=== PATIENT | female | born 1980 | race Caucasian/White ===

== ENCOUNTER 2019-10-19 08:21 | Outpatient (CLI) | payer OTHER, SELFPAY ==
--- NOTE | ~2019-10-19 | MM_ITS ---
EXAMINATION: MM scrn donny implant BI w genevieve HISTORY: Screening mammogram TECHNIQUE: Craniocaudal and mediolateral oblique 3-D tomosynthesis images with implant displacement a nd synthetic 2-D images were generated. Craniocaudal and mediolateral oblique views of the breasts wi thout implant displacement were obtained using full field digital mammography. CAD analysis was submi tted and interpreted. COMPARISON: No prior mammogram is available for comparison at this institution. BREAST PARENCHYMAL COMPOSITION: The breasts are extremely dense, which lowers the sensitivity of mamm ography. FINDINGS: Status post bilateral augmentation mammoplasty. There is no evidence of suspicious mass, ca lcification, or architectural distortion to suggest malignancy in either breast. There has been no ramirez spicious interval change. IMPRESSION: 1. No mammographic evidence of malignancy. 2. Recommend routine screening mammography in one year. BI-RADS Category 1: Negative Reviewed, dictated and finalized at location A.
== END 2019-10-19 08:22 | disposition home or self-care (01) ==
DX: Z12.31 Encounter for screening mammogram for malignant neoplasm of breast (principal)
CPT/HCPCS: 77063; 77067

== ENCOUNTER 2020-03-07 02:14 | Outpatient (CLI) | payer OTHER, SELFPAY ==
[2020-03-07 18:17] LABS: SARS-CoV-2 RNA PCR Negative
== END 2020-03-07 02:15 | disposition home or self-care (01) ==
LOC: ANHCOVIDDT 02:14
PROVIDERS: PCP Physician Assistant; Visit Provider Surgery Plastic and Reconstructive Surgery
DX: Z01.812 Encounter for preprocedural laboratory examination (principal); Z20.828 Contact with and (suspected) exposure to other viral communicable diseases
CPT/HCPCS: 87635; C9803; U0003

== ENCOUNTER 2020-03-09 00:02 | Day surgery (SDC) | payer OTHER, SELFPAY ==
[2020-02-22 15:12] VITALS: BMI 23.1
[2020-03-09 06:45] LABS: Urine Cotinine NEGATIVE
[2020-03-09] MEDS: LACTATED RINGERS 1,000 ML 30 ML IV CONT ×2 (06:48→08:45)
--- NOTE | 2020-03-09 06:55 | WPDANESEPPF ---
Anes - Initial Pre Proc Eval Procedure: Operation Date: 03/09/20 07:30 Proposed Procedures p Bilateral Breast Implant Exchange - Vito Peña MD Date/Time: 03/09/20 06:55 Surgeon: Vito Peña MD Pre Op Diagnosis: History of Breast Augmentation Patient Data Age: 40 Gender: F Height: 5 ft 4 in Weight: 61.24 kg Allergies Allergy/AdvReac Type Severity Reaction Status Date / Time No Known Allergies Allergy Verified 02/23/20 16:33 Home Medications Medication Instructions Recorded Confirmed Type dextroamphetamine-amphetamine 5 mg 5 mg PO DAILY PRN 09/08/19 02/22/20 History tablet sertraline 100 mg tablet 100 mg PO DAILY 09/08/19 02/22/20 History adalimumab [Humira Pen] 40 mg SUBCUT [id number] 02/22/20 02/22/20 History levonorgestrel [Mirena] 1 device INTRAUTERINE ONCE 02/22/20 02/22/20 History multivitamin 1 tablet PO DAILY 02/22/20 02/22/20 History carisoprodol 350 mg tablet 350 mg PO TID PRN #21 tablet 02/23/20 02/23/20 Rx docusate sodium 100 mg capsule 100 mg PO BID #14 cap 02/23/20 02/23/20 Rx hydrocodone 5 mg-acetaminophen 325 1 tablet PO Q6H PRN #15 tablet 02/23/20 02/23/20 Rx mg tablet Laboratory Tests 03/09/20 06:16 Cotinine Negative Patient hx anesthesia problems: none Family hx anesthesia problems: none PMFSH Past Medical History Medical History (Updated 03/09/20 @ 06:56 by Reed Mccloud MD) Excessive sleepiness Psoriasis Surgical History Surgical History History of History of elective breast augmentation Social History Social History Smoking status: Never smoker Spiritual care concerns: No Anes - Eval Final PreProcedure Day of Procedure 03/09/20 06:55 Patient weight: normal Heart: regular rate and rhythm Lungs: clear to auscultation Airway: Mallampati scale class II Neurological: alert and oriented Last oral intake: >/= 8 hours ASA classification: II Emergent: no Anesthetic plan: proceed Anesthesia type and monitoring: general LMA and standard monitoring Informed Consent: The patient's anesthetic plan and its attendant risks and benefits were discussed with the patient/family/POA. Questions were solicited and answers provided to the satisfaction of the patient/family/POA.
[2020-03-09 07:00] VITALS: BP 126/78; PULSE 65; RESP 18; TEMP 36.6; O2SAT 99
--- NOTE | 2020-03-09 07:13 | WPDHPUPDATE1 ---
History and Physical Update Update Date/Time: 03/09/20 07:13 History and Physical has been reviewed, including an updated exam of the patient. There are NO changes in the patient's condition. She understands the risks of persistant breast ptosis after the procedure. She does not want to proceed with mastopexy today. She understands she may proceed with mastopexy at a second stage at her expense if desired. Risks, benefits, and alternatives have been discussed and questions answered. Patient agrees to proceed with procedure.
--- NOTE | 2020-03-09 07:17 | PM.PROC ---
Procedure Note - Detailed Date of procedure: 03/09/20 Pre-op diagnosis: History of Breast Augmentation Post-op diagnosis: same Procedure performed: Bilateral breast implant exchange Description of procedure: Patient was marked in the preoperative area. Risks, benefits, alternatives were discussed extensive detail. I want her to be very realistic about the risks involved as well as expectations. 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 This was identified in great detail today again as has been at previous visits. I want her to be very clear we will not be correcting this. She does not wish to proceed with mastopexy today and she understands that a second-stage she could have mastopexy if she is unhappy. This would be at her expense. We discussed implant sizing. Made sure all of her questions were answered to her satisfaction today and consent obtained. She was taken to the operating room placed supine on the operating room table. Anesthesia provided by anesthesiology and prepped and draped in a standard sterile fashion. Surgical time-out was taken. 1% lidocaine and 0.25% Marcaine with epinephrine was used to provide a field block. Fifteen blade used to excise the previous scar. Dissection was continued down to the implant was identified. The implant was textured. As such I continued dissection just superficial to the capsule and removed the majority of the capsule. The posterior wall was very adherent to the chest wall I was not able to remove this however I did cauterize. I did elevated superficial to the muscle on the right dual plane 3 on the left dual plane 2. At this point I copiously irrigated with 3 L of saline on TUR tubing. Verified a strict hemostasis. Irrigated with triple antibiotic Betadine solution. Throughout the procedure we did have Tegaderm nipple Joseph in place. Wash my gloves and using a Clayton funnel the implant was introduced into the pocket. I verified positioning. This was closed with 2-0 Vicryl followed by 3-0 Monocryl in a running subcuticular 4-0 Monocryl and tissue glue. Dressing was placed. Anesthesia: GLMA Surgeon: Vito Peña MD Estimated blood loss (mL): 10 Drains: No Packing: No Pathology: yes (Bilateral capsules) Complications: No immediate complications Condition: stable Disposition: PACU Findings: Previous implant 270cc textured saline est fill 300. Implants Natrelle Inspira SoftTouch 275cc R: REF M-275 SN [id number] L: REF M-275 SN [id number]
[2020-03-09] MEDS: ceFAZolin 2 GM/D5W 50 ML 2 GM/50 ML BAG IVPB (07:27)
[2020-03-09] MEDS: LIDO 1%/EPINEPHRINE 1:100,000 20 ML VIAL 30 ML INFILTRATE (08:31)
[2020-03-09 08:50] VITALS: BP 141/76; PULSE 93; RESP 20; TEMP 36.1; O2SAT 100
[2020-03-09 09:05] VITALS: BP 135/73; PULSE 83; RESP 12; O2SAT 98
[2020-03-09] MEDS: fentaNYL CITRATE INJ (*CRX) 100 MCG/2 ML VIAL 25 MCG IV PUSH (09:17)
[2020-03-09 09:20] VITALS: BP 126/78; PULSE 81; RESP 14; O2SAT 92
[2020-03-09 09:35] VITALS: BP 127/81; PULSE 76; RESP 14; O2SAT 92
[2020-03-09] MEDS: oxyCODONE HCL (*CRX) 5 MG TAB IR PO (10:00)
[2020-03-09 10:05] VITALS: BP 122/81; PULSE 85; RESP 16; O2SAT 95
== END 2020-03-09 11:05 | disposition home or self-care (01) ==
PROVIDERS: PCP Physician Assistant; Visit Provider Surgery Plastic and Reconstructive Surgery
PROC: (CPT 19342; principal; 2020-03-09 07:30)
DX: N64.81 Ptosis of breast (principal); T85.49XA Other mechanical complication of breast prosthesis and implant, initial encounter; Y83.8 Other surgical procedures as the cause of abnormal reaction of the patient, or of later complication, without mention of misadventure at the time of the procedure; L40.9 Psoriasis, unspecified; Z79.899 Other long term (current) drug therapy
CPT/HCPCS: 19371; 19340; 80307; 88304; A9270; J0131; J0690; J1100; J1580; J2250; J2405; J2704; J3010; J7120

== ENCOUNTER 2021-08-09 07:25 | Outpatient (CLI) | payer OTHER, SELFPAY ==
--- NOTE | ~2021-08-09 | MM_ITS ---
EXAMINATION: MM scrn donny implant BI w genevieve HISTORY: Screening mammogram TECHNIQUE: Craniocaudal and mediolateral oblique 3-D tomosynthesis images with implant displacement a nd synthetic 2-D images were generated. Craniocaudal and mediolateral oblique views of the breasts wi thout implant displacement were obtained using full field digital mammography. CAD analysis was submi tted and interpreted. COMPARISON: 10/19/2019 BREAST PARENCHYMAL COMPOSITION: The breasts are extremely dense, which lowers the sensitivity of mamm ography FINDINGS: There is a new mass superiorly in the right breast on MLO view, not seen on prior examinati on. The left breast is stable without evidence for malignancy. IMPRESSION: 1. New right breast mass superiorly on MLO view. 2. Additional mammographic views and possible breast ultrasound are recommended. BI-RADS Category 0: Incomplete: Needs additional imaging evaluation. Reviewed, dictated and finalized at location A. NT DELIVERY SPECIALIST IMPRESSION: 1. New right breast mass superiorly on MLO view. 2. Additional mammographic views and possible breast ultrasound are recommended . BI-RADS Category 0: Incomplete: Needs additional imaging evaluation.
== END 2021-08-09 07:26 | disposition home or self-care (01) ==
PROVIDERS: PCP Physician Assistant; Visit Provider Obstetrics & Gynecology
DX: Z12.31 Encounter for screening mammogram for malignant neoplasm of breast (principal); R92.8 Other abnormal and inconclusive findings on diagnostic imaging of breast
CPT/HCPCS: 77063; 77067

== ENCOUNTER 2021-08-27 13:44 | Outpatient (CLI) | payer OTHER, SELFPAY ==
--- NOTE | ~2021-08-27 | MMUS_ITS ---
EXAMINATION: MM diag donny implant RT w genevieve, US breast RT limited HISTORY: Right breast mass on screening mammogram TECHNIQUE: Mediolateral 3-D tomosynthesis images with implant displacement of the right breast were p erformed and synthetic 2-D images were generated. Mediolateral views of the right breast without imp lant displacement were obtained using full field digital mammography. Spot compression views are also obtained. CAD analysis was submitted and interpreted. High resolution limited right breast ultrasoun d was performed. COMPARISON: 08/09/2021, 10/19/2019 FINDINGS: MAMMOGRAPHIC FINDINGS: There is an approximately 3 cm obscured obscured equal density mass with lobulated margins in the far upper outer quadrant of the right breast. ULTRASOUND: There is an approximately 2.6 x 0.9 cm oval, circumscribed, parallel, complex cystic and solid mass a t the 10:00 location 7 cm from the nipple with posterior acoustic enhancement and no internal vascula rity. IMPRESSION: 1. Probably benign right breast mass. 2. Recommend 6 month follow-up right diagnostic mammogram and ultrasound. BI-RADS category 3, probably benign findings. Reviewed, dictated and finalized at location A. IMPRESSION: 1. Probably benign right breast mass. 2. Recommend 6 month follow-up right diagnostic mammogram and ultrasound. BI-RADS category 3, probably benign findings.
== END 2021-08-27 13:45 | disposition home or self-care (01) ==
LOC: ANHIMG 13:52
PROVIDERS: PCP Obstetrics & Gynecology; Visit Provider Obstetrics & Gynecology
DX: R92.8 Other abnormal and inconclusive findings on diagnostic imaging of breast (principal)
CPT/HCPCS: 76642; 77061; 77065; G0279

== ENCOUNTER 2022-03-04 12:13 | Outpatient (CLI) | payer OTHER, SELFPAY ==
--- NOTE | ~2022-03-04 | MMUS_ITS ---
EXAMINATION: MM diag donny implant RT w genevieve, US breast RT limited HISTORY: Six-month follow-up for probably benign right breast mass TECHNIQUE: Craniocaudal, mediolateral, and mediolateral oblique 3-D tomosynthesis images with implant displacement of the right breast were performed and synthetic 2-D images were generated. Craniocaud al, mediolateral oblique, and mediolateral views of the right breast without implant displacement wer e obtained using full field digital mammography. CAD analysis was submitted and interpreted. High res olution limited right breast ultrasound was performed. COMPARISON: 08/27/2021, 08/09/2021, 10/19/2019 BREAST PARENCHYMAL COMPOSITION: The breasts are heterogeneously dense, which may obscure small masses . FINDINGS: MAMMOGRAPHIC FINDINGS: The previously described mass in the far upper outer quadrant of the right breast is not definitely i dentified. No suspicious mass, calcification, or architectural distortion are identified. ULTRASOUND: Again seen is a stable approximately 2.5 x 0.9 cm oval, circumscribed, parallel, complex cystic and s olid mass at the 10:00 location 7 cm from the nipple with posterior acoustic enhancement and no inter nal vascularity. There has been no suspicious interval change. IMPRESSION: 1. Stable, probably benign right breast mass. 2. Recommend 6 month follow-up right diagnostic mammogram and ultrasound. BI-RADS category 3, probably benign findings. Reviewed, dictated and finalized at location A. IMPRESSION: 1. Stable, probably benign right breast mass. 2. Recommend 6 month follow-up right diagnostic mammogram and ultrasound. BI-RADS category 3, probably benign findings.
== END 2022-03-04 12:14 | disposition home or self-care (01) ==
LOC: ANHIMG 12:17
PROVIDERS: PCP Obstetrics & Gynecology; Visit Provider Obstetrics & Gynecology
DX: R92.8 Other abnormal and inconclusive findings on diagnostic imaging of breast (principal)
CPT/HCPCS: 76642; 77061; 77065; G0279

== ENCOUNTER 2022-11-01 13:10 | Outpatient (CLI) | payer OTHER, SELFPAY ==
--- NOTE | ~2022-11-01 | MMUS_ITS ---
EXAMINATION: MM diag donny implant BI w genevieve, US breast RT limited HISTORY: Six-month follow-up of probable benign 2.5 x 0.9 cm circumscribed complex cystic and solid r ight breast mass at 10:00 7 cm from nipple TECHNIQUE: ML, MLO and CC 3-D tomosynthesis images of were performed and synthetic 2-D images were ge nerated. ML, MLO and CC implant views. CAD analysis was submitted and interpreted. High resolution ta rgeted right breast ultrasound was performed. COMPARISON: 03/21/2022 diagnostic right mammogram and limited right breast ultrasound 08/27/2021 diagnostic right mammogram and limited right breast ultrasound 08/09/2021, 10/19/2019 bilateral implant screening mammogram examinations BREAST PARENCHYMAL COMPOSITION: The breasts are extremely dense, which lowers the sensitivity of mamm ography. FINDINGS: MAMMOGRAPHIC FINDINGS: Status post bilateral augmentation mammoplasty. No suspicious mass or architectural distortion, microcalcifications, skin thickening or retraction or significant new or developing density of either breast is detected mammographically. ULTRASOUND: 10:00 7 cm from nipple: 3.3 x 10.6 mm parallel circumscribed sonolucency with through transmission, b enign in appearance. This is considerably diminished from approximately 9 x 25 mm since 03/04/2023 11: 00 3 cm from nipple: Parallel circumscribed hypoechoic approximately 4.6 x 8.1 x 6.7 mm lesion withou t internal vascularity or posterior shadowing, likely benign. Six-month follow-up targeted right layla st ultrasound imaging is recommended with attention to this area. IMPRESSION: 1. Probable benign finding 2. Six-month targeted right breast 11:00 ultrasound follow-up is recommended BI-RADS category 3, probably benign findings. Reviewed, dictated and finalized at location A. IMPRESSION: 1. Probable benign finding 2. Six-month targeted right breast 11:00 ultrasound follow-up is recommended BI-RADS category 3, probably benign findings.
== END 2022-11-01 13:11 | disposition home or self-care (01) ==
PROVIDERS: PCP Obstetrics & Gynecology; Visit Provider Obstetrics & Gynecology
DX: R92.8 Other abnormal and inconclusive findings on diagnostic imaging of breast (principal)
CPT/HCPCS: 76642; 77062; 77066; G0279

== ENCOUNTER 2023-07-21 10:32 | Outpatient (CLI) | payer OTHER, SELFPAY ==
--- NOTE | ~2023-07-21 | MMUS_ITS ---
EXAMINATION: MM diag donny implant RT w genevieve, US breast RT limited HISTORY: Follow-up right breast mass TECHNIQUE: Additional 3-D tomosynthesis images of the right breast were performed and synthetic 2-D i mages were generated. CAD analysis was submitted and interpreted. High resolution Limited right breas t ultrasound was performed. COMPARISON: 11/01/2022 BREAST PARENCHYMAL COMPOSITION: Dense: The breasts are heterogeneously dense, which may obscure small masses FINDINGS: MAMMOGRAPHIC FINDINGS: There are no suspicious masses, calcifications or architectural distortion to suggest malignancy. The re is a subpectoral breast implant. ULTRASOUND: Limited right breast ultrasound: At 11:00, 3 cm from the nipple there is a stable 8 x 8 x 4 mm oval h ypoechoic mass without posterior features or internal vascularity. There is parallel orientation. At 10:00, 7 cm from the nipple there is an oval hypoechoic mass measuring 8 x 6 x 2 mm, likely a benign complicated cyst. IMPRESSION: 1. Probable benign right breast masses. 2. Recommend 6 month follow-up bilateral screening mammogram and Limited right breast ultrasound. BI-RADS category 3, probably benign findings. Reviewed, dictated and finalized at location A. SECURITY ANALYST IMPRESSION: 1. Probable benign right breast masses. 2. Recommend 6 month follow-up bilateral screening mammogram and Limited right breast ultrasound. BI-RADS category 3, probably benign findings.
== END 2023-07-21 10:33 | disposition home or self-care (01) ==
LOC: ANHIMG 10:34
PROVIDERS: PCP Obstetrics & Gynecology; Visit Provider Obstetrics & Gynecology
DX: N63.10 Unspecified lump in the right breast, unspecified quadrant (principal); R92.8 Other abnormal and inconclusive findings on diagnostic imaging of breast
CPT/HCPCS: 76642; 77061; 77065; G0279

== ENCOUNTER 2024-03-24 12:44 | Outpatient (CLI) | payer OTHER, SELFPAY ==
--- NOTE | ~2024-03-24 | MMUS_ITS ---
EXAMINATION: US breast RT limited, MM diag donny implant BI w genevieve HISTORY: Follow-up right breast masses. TECHNIQUE: Additional 3-D tomosynthesis images of the breasts were performed and synthetic 2-D images were generated. CAD analysis was submitted and interpreted. High resolution Limited right breast ult rasound was performed. COMPARISON: Comparison to multiple prior studies sequentially, with oldest reviewed study dated 08/27. BREAST PARENCHYMAL COMPOSITION: Dense: The breasts are extremely dense, which lowers the sensitivity of mammography. FINDINGS: MAMMOGRAPHIC FINDINGS: There are no suspicious masses, calcifications or architectural distortion in the right breast to sug gest malignancy. ULTRASOUND: Limited right breast ultrasound: At 10:00, 8 cm from the nipple there is an oval circumscribed parall el oriented hypoechoic mass measuring 10 x 5 x 4 mm without significant change compared with 11/02/19 23, likely benign. At 10:00, 8 cm from the nipple there is a 3 mm cyst. At 10:00, 7 cm from the nippl e there are mildly prominent serpiginous ducts. IMPRESSION: 1. Stable likely benign right breast masses. 2. Given one year of interval stability, Limited right breast ultrasound recommended. BI-RADS category 3, probably benign findings. Reviewed, dictated and finalized at location B. IMPRESSION: 1. Stable likely benign right breast masses. 2. Given one year of interval stability, Limited right breast ultrasound recomm ended. BI-RADS category 3, probably benign findings.
== END 2024-03-24 12:45 | disposition home or self-care (01) ==
LOC: ANHIMG 12:45
PROVIDERS: PCP Obstetrics & Gynecology; Visit Provider Obstetrics & Gynecology
DX: R92.8 Other abnormal and inconclusive findings on diagnostic imaging of breast (principal)
CPT/HCPCS: 76642; 77062; 77066; G0279

== ENCOUNTER 2025-01-13 13:12 | Outpatient (CLI) | payer OTHER, SELFPAY ==
--- NOTE | ~2025-01-13 | MMUS_ITS ---
EXAMINATION: MM diag donny implant BI w genevieve, US breast BI complete HISTORY: Follow-up right breast mass is TECHNIQUE: Additional 3-D tomosynthesis images of the breasts were performed and synthetic 2-D images were generated. CAD analysis was submitted and interpreted. High resolution bilateral complete breas t ultrasound was performed. COMPARISON: None Comparison to multiple prior studies sequentially, with oldest reviewed study dated 08/09/2021. BREAST PARENCHYMAL COMPOSITION: Dense: The breasts are extremely dense, which lowers the sensitivity of mammography. FINDINGS: MAMMOGRAPHIC FINDINGS: There are no new masses, calcifications or architectural distortion in either breast to suggest malig bonny. ULTRASOUND: Complete US of all 4 quadrants of the breast/s and retroareolar region was reviewed. Right breast: At 10:00, 8 cm from the nipple there is an oval hypoechoic mass with parallel orientati on, no posterior features and minimal internal vascularity measuring 12 x 4 x 6 mm compared with 10 x 4 x 5 mm on prior examination. No significant interval change. There is an adjacent cyst measuring 3 mm. At 10:00, 7 cm from the nipple there is a cluster of cystic structures possibly serpiginous duct s Left breast: At 3:00 near the nipple there is a 4 mm cyst. At 10:00, 3 cm from the nipple there is an oval hypoechoic mass measuring 1.5 x 2 x 0.5 cm with parallel orientation, posterior acoustic enhanc ement and no internal vascularity, likely benign. Which does not appear to be significantly changed c ompared with prior examination. IMPRESSION: 1. Probable benign bilateral breast masses. 2. Recommend 6 month follow-up limited bilateral breast ultrasound. BI-RADS category 3, probably benign findings. Reviewed, dictated and finalized at location A. IMPRESSION: 1. Probable benign bilateral breast masses. 2. Recommend 6 month follow-up limited bilateral breast ultrasound. BI-RADS category 3, probably benign findings.
--- OUTSIDE RECORDS SUMMARY | 2025-01-13 13:21 | XMS_ITS | Clinical Summary ---
Author Organization [facility] Address [address] [place] [address] Phone Care Team Providers Care Hydropulper Operator Name Role Phone RachidMary Anne gonsales Fredi CAMPUZANO Primary Care Provider Allergies No known active allergies Medications terbinafine (LamISIL) 250 MG Tablet Take 250 mg by mouth. Active Progesterone 200 MG Capsule Take 200 mg by mouth daily. Active Risankizumab-rz aa 150 MG/ML Solution Prefilled Syringe 150 mg by Subcutaneous route. Active Testosterone Micronized Crystals daily. 5 5 Active buPROPion (WELLBUTRIN) 150 MG XL tablet Take 150 mg by mouth daily. 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 Gender Identity Not on file Sexual Orientation Not on file Last Filed Vital Signs Vital Sign Reading Time Taken Comments Blood Pressure 120/78 10/12/2024 3:17 PM CDT Pulse 70 10/12/2024 3:17 PM CDT Temperature 36.9 C (98.4 F) 10/12/2024 3:17 PM CDT Respiratory Rate 18 10/12/2024 3:17 PM CDT Oxygen Saturation 99% 10/12/2024 3:17 PM CDT Inhaled Oxygen Concentration - - Weight 60.5 kg (133 lb 4.8 oz) 10/12/2024 3:17 P M CDT Height 162.6 cm (5' 4) 10/12/2024 3:17 PM CDT Body Mass Index 22.88 10/12/2024 3:17 PM CDT Plan of Treatment Upcoming Encounters Date Type Department Care Team (Late st Contact Info) Description 04/12/2025 2:30 PM LODGE SALES ASSOCIATE Lab [facility] [address] [phone] Lab, [facility] 04/12/2025 2:45 PM LODGE SALES ASSOCIATE Office Visit [facility] [address] [phone] Junaid Langford MD [address] [place] [address] [phone] Health Maintenance Due Date Last Done Comments Hepatitis C Virus (HCV) Screening 1979 Mammogram 1979 Hepatitis B Immunization (1 of 3 - 19+ 3-dose series) 1998 Pap Smear 2000 Human Papillomavirus (HPV) Immunization (1 - 3-dose SCDM series) 2006 Cervical Cancer Screening (CCS) 2009 HPV/Cotest 2009 Discussion re Starting/Frequ ency of Mammograms 2019 SARS-COV-2 Immunization ( season) 2024 Cologuard 2024 Colonoscopy 2024 Colorectal Cancer Screening 2024 Immunochemical Fecal Occult Blood 2024 Influenza Immunization (#1) 2025 Respiratory Syncytial Virus (RSV) Immunization (Adult) (1 - 1-dose 75+ series) 2054 TdaP Immunization Completed 01/06/2019 Meningococcal Immunization (ACWY) Aged Out No longer eligible based on patient's age to complete this topic Pneumococcal Immunization Combined Aged Out No longer eligible based on patient's age to complete this topic Rotavirus Immunization Aged Out No lo nger eligible based on patient's age to complete this topic Insurance [facility] Care Teams Hydropulper Operator Relationship Specialty Start Date End Date Mary Anne Rashid, PAC [address] [place] [id number] PCP - General Physician [employer] Station Service Attendant 06/17/24
== END 2025-01-13 13:13 | disposition home or self-care (01) ==
PROVIDERS: PCP Obstetrics & Gynecology; Visit Provider Obstetrics & Gynecology
DX: N63.10 Unspecified lump in the right breast, unspecified quadrant (principal); R92.8 Other abnormal and inconclusive findings on diagnostic imaging of breast
CPT/HCPCS: 76641; 77062; 77066; G0279